=== PATIENT | male | born 1950 | race Caucasian/White ===

== ENCOUNTER → 2017-02-14 | Outpatient (CLI) | payer MEDICARE, BC | END | disposition home or self-care (01) | LOC: PCVCIMAG 11:51 | PROVIDERS: ATTEND Internal Medicine Cardiovascular Disease | DX: I25.10 Atherosclerotic heart disease of native coronary artery without angina pectoris (principal); E78.00 Pure hypercholesterolemia, unspecified | CPT/HCPCS: 93325; 93351 ==

== ENCOUNTER → 2018-02-20 | Outpatient (CLI) | payer MEDICARE, BC | END | disposition home or self-care (01) | LOC: PCVCCLINIC 11:00 | DX: R93.1 Abnormal findings on diagnostic imaging of heart and coronary circulation (principal); E78.00 Pure hypercholesterolemia, unspecified; Z82.49 Family history of ischemic heart disease and other diseases of the circulatory system | CPT/HCPCS: 80061; 93005; G0463 ==

== ENCOUNTER → 2019-02-26 | Outpatient (CLI) | payer MEDICARE, BC ==
--- NOTE | 2019-02-26 16:57 | PCVCIMAG ---
APPROVED REPORT Study performed: 02/26/2019 09:51:38 Exam: Stress Echocardiogram Indication: Elevated CA Score, Hyperlipidemia Patient Location: Echo lab Stress Nurse: Cecy Cm RN Status: routine Ht: 6 ft 0 in HR: 66 bpm BP: 118/76 mmHg Rhythm: NSR Medical History Exercise History: Physically active Procedure The patient underwent an Exercise Stress Test using the Haris Protocol. Blood pressure, heart rate, and EKG were monitored. An Echocardiogram was performed by geotechnical laboratory technician in four stages in quad fashion. At peak stress, four selected images were obtained and placed side by side with resting images for comparison. Stress Test Details Stress Test: Exercise stress testing was performed using a Haris protocol. HR Resting HR: 66 bpmMax Heart Rate (APMHR): 153 bpm Max HR Achieved: 160 bpmTarget HR (85% APMHR): 130 bpm % of APMHR: 104 Recovery HR: 86 bpm HR response to stress: Normal HR response to stress BP Resting BP: 118/76 mmHg Max BP: 170/70 mmHg Recovery BP: 122/74 mmHg BP response to stress: Normal blood pressure response to stress. ECG Resting ECG: Sinus Rhythm Stress ECG: Sinus Rhythm Recovery ECG: Sinus Rhythm Clinical Reason for Termination: Maximal effort Exercise duration: 12 min 42 sec Highest Stage Achieved: Stage 5: 5.0 mph at 18% grade. Exercise capacity: 16.00 METs Overall Exercise Capacity for Age: Good Stress ECG Conclusion ECG: Non-ischemic Clinical: Non-ischemic Pre-Stress Echo The resting Echocardiogram showed normal left ventricular contractility with an estimated Ejection Fraction of about >55%. Normal wall motion in all segments on baseline images. Post-Stress Echo The stress Echocardiogram showed normal left ventricular contractility with an estimated Ejection Fraction of about 60-65%. Normal augmentation of wall motion in all segments on post stress images. Clinical No clinical or ECG evidence for ischemia. Conclusion Clinical Response: Non-ischemic Exercise Capacity: Superior Stress ECG Response: Non-ischemic Stress Echo Images: Non-ischemic The left ventricle is normal in size and wall thickness in both the rest and stress images. Other Information Study Quality: Good <Conclusion> The left ventricle is normal in size and wall thickness in both the rest and stress images.
== END | disposition home or self-care (01) ==
LOC: PCVCIMAG 09:37
PROVIDERS: ATTEND Internal Medicine Cardiovascular Disease
DX: R93.1 Abnormal findings on diagnostic imaging of heart and coronary circulation (principal); E78.2 Mixed hyperlipidemia; I10 Essential (primary) hypertension
CPT/HCPCS: 93325; 93351